=== PATIENT | male | born 1995 | race African-American/Black ===

== ENCOUNTER 2018-03-19 16:40 | Emergency (ER) | payer OTHER ==
--- NOTE | 2018-03-19 17:05 | PDOC ---
Rapid Medical Evaluation Time Seen by Provider: 03/19/18 17:01 Medical Evaluation: 03/19/18 17:01 I have performed a brief in-person evaluation of this patient. The patient presents with a chief complaint of: frontal headache and fever X 1wk , sent by PCP for workup. no neck pain or recent travel, seen at [facility] on Monday, workup included neg CT. Pertinent physical exam findings:non focal neuro exam I have ordered the following: none The patient will proceed to the ED for further evaluation. 03/19/18 17:05 03/19/18 17:06 Discharge Disposition - Diagnosis Headache Qualifiers: Headache type: unspecified Headache chronicity pattern: acute headache Intractability: not intractable Qualified Code(s): R51 - Headache - Referrals - Patient Instructions - Post Discharge Activity
[2018-03-19 17:06] VITALS: BMI 24.3
--- NOTE | 2018-03-19 17:40 | PDOC ---
History of Present Illness - General Chief Complaint: Headache Stated Complaint: PCP SENT/HEADACHE Time Seen by Provider: 03/19/18 17:01 - History of Present Illness Initial Comments: 22-year-old male without comorbidities presents for evaluation of stiff neck and fever 4 days. He was seen in another emergency room diagnosed with sinusitis and put on an antibiotic. Since that time he has not gotten any better. 03/19/18 17:39 Past History - Past Medical History Allergies/Adverse Reactions: Allergies Allergy/AdvReac Type Severity Reaction Status Date / Time No Known Allergies Allergy Verified 03/19/18 17:01 Home Medications: Ambulatory Orders NK [No Known Home Medication] 03/19/18 COPD: No Other medical history: DENIES. - Suicide/Smoking/Psychosocial Hx Smoking History: Never smoked Review of Systems - Review of Systems Constitutional: Yes: Fever Musculoskeletal: Yes: Neck Pain Neurological: Yes: Headache All Other Systems: Reviewed and Negative *Physical Exam - Vital Signs Last Vital Signs Temp Pulse Resp BP Pulse Ox 98.7 F 86 19 137/78 100 03/19/18 17:01 03/19/18 17:01 03/19/18 17:01 03/19/18 17:01 03/19/18 17:01 - Physical Exam Comments: GENERAL: The patient is awake, alert, and fully oriented, in no acute distress. HEAD: Normal with no signs of trauma. EYES: Pupils equal, round and reactive to light, extraocular movements intact, sclera anicteric, conjunctiva clear. ENT: Ears normal, nares patent, oropharynx clear without exudates. Moist mucous membranes. NECK: Normal range of motion, he has meningismus without lymphadenopathy, JVD, or masses. LUNGS: Breath sounds equal, clear to auscultation bilaterally. No wheezes, and no crackles. HEART: Regular rate and rhythm, normal S1 and S2 without murmur, rub or gallop. ABDOMEN: Soft, nontender, normoactive bowel sounds. No guarding, no rebound. No masses. EXTREMITIES: Normal range of motion, no edema. No clubbing or cyanosis. No cords, erythema, or tenderness. NEUROLOGICAL: Cranial nerves II through XII grossly intact. Normal speech, normal gait. PSYCH: Normal mood, normal affect. SKIN: Warm, Dry, normal turgor, no rashes or lesions noted. 03/19/18 17:39 Medical Decision Making - Medical Decision Making I'll transfer this patient to the main emergency room to rule out meningitis 03/19/18 17:40 *DC/Admit/Observation/Transfer Diagnosis at time of Disposition: Headache Qualifiers: Headache type: unspecified Headache chronicity pattern: acute headache Intractability: not intractable Qualified Code(s): R51 - Headache - Referrals - Patient Instructions - Post Discharge Activity
[2018-03-19] MEDS ORDERED: METOCLOPRAMIDE HCL INJECTION 10 MG/2 ML VIAL IVPUSH ONE (18:30)
[2018-03-19] MEDS ORDERED: SODIUM CHLORIDE 1,000 ML IV STA (18:30)
--- NOTE | 2018-03-19 18:50 | PDOC ---
History of Present Illness <Nasra Gentile - Last Filed: 03/19/18 21:36> - General History Source: Patient Exam Limitations: No Limitations - History of Present Illness Initial Comments: 03/19/18 23:17 The patient is a 22-year-old male with no significant past medical history presents to the emergency department with a headache and fever. The patient presents with a progressively worsening headache, localized to the frontal region, accompanied with 4-day hx of fever. The patient reports going to [facility] 3 days prior, was worked up with a negative CT scan and dx with sinusitis, the patient was prescribed Augmentin and motrin. The patient reports taking Augmentin only when a headache is aggravated. The patient reports he was at Dr. Mott's office, where his temperature was 103, no relief with Motrin, and was sent in for evaluation. Denies photophobia. Denies recent travel. Denies nausea or vomiting. Denies sick contact. Denies chills, cough or a headache. Denies chest pain or shortness of breath. Denies abdominal pain. Denies diarrhea or constipation. Denies dysuria, hematuria, frequency or urgency to urinate. Allergies: NKDA Social history: 2 joints daily, no tob, drinks on weekends Surgical history: rotator cuff tear PCP: None reported <Estela Jiang - Last Filed: 03/19/18 23:17> <Kristina Raymundo - Last Filed: 03/19/18 23:46> - General Chief Complaint: Headache Stated Complaint: PCP SENT/HEADACHE Time Seen by Provider: 03/19/18 17:01 Past History <SeferinoNasra - Last Filed: 03/19/18 21:36> <Estela Jiang - Last Filed: 03/19/18 23:17> - Past Medical History COPD: No Other medical history: DENIES. - Suicide/Smoking/Psychosocial Hx Smoking History: Never smoked <Kristina Raymundo - Last Filed: 03/19/18 23:46> - Past Medical History Allergies/Adverse Reactions: Allergies Allergy/AdvReac Type Severity Reaction Status Date / Time No Known Allergies Allergy Verified 03/19/18 17:01 Home Medications: Ambulatory Orders NK [No Known Home Medication] 03/19/18 Review of Systems - Review of Systems Able to Perform ROS?: Yes Comments:: 03/19/18 23:18 CONSTITUTIONAL: (+) Fever Absent: chills, diaphoresis, generalized weakness, malaise, loss of appetite HEENT: Absent: rhinorrhea, nasal congestion, throat pain, throat swelling, difficulty swallowing, mouth swelling, ear pain, eye pain, visual Changes CARDIOVASCULAR: Absent: chest pain, syncope, palpitations, irregular heart rate, lightheadedness , peripheral edema RESPIRATORY: Absent: cough, shortness of breath, dyspnea with exertion, orthopnea, wheezing, stridor, hemoptysis GASTROINTESTINAL: Absent: abdominal pain, abdominal distension, nausea, vomiting, diarrhea, constipation, melena, hematochezia GENITOURINARY: Absent: dysuria, frequency, urgency, hesitancy, hematuria, flank pain, genital pain MUSCULOSKELETAL: Absent: myalgia, arthralgia, joint swelling SKIN: Absent: rash, itching, pallor HEMATOLOGIC/IMMUNOLOGIC: Absent: easy bleeding, easy bruising, lymphadenopathy, frequent infections ENDOCRINE: Absent: unexplained weight gain, unexplained weight loss, heat intolerance, cold intolerance NEUROLOGIC: (+) Headache. Absent: headache, focal weakness or paresthesias, dizziness, unsteady gait, seizure, mental status changes, bladder or bowel incontinence PSYCHIATRIC: Absent: anxiety, depression, suicidal or homicidal ideation, hallucinations. <Estela Jiang - Last Filed: 03/19/18 23:17> *Physical Exam - Vital Signs Last Vital Signs Temp Pulse Resp BP Pulse Ox 98.7 F 86 19 137/78 100 03/19/18 17:01 03/19/18 17:01 03/19/18 17:01 03/19/18 17:01 03/19/18 17:01 <Nasra Gentile - Last Filed: 03/19/18 21:36> - Vital Signs Last Vital Signs Temp Pulse Resp BP Pulse Ox 98.7 F 86 19 137/78 100 03/19/18 17:01 03/19/18 17:01 03/19/18 17:01 03/19/18 17:01 03/19/18 17:01 - Physical Exam Comments: 03/19/18 23:18 GENERAL:Diaphoretic Well developed, well nourished. Awake and alert. No acute distress. HEENT: Normocephalic, atraumatic. PERRLA, EOMI. No conjunctival pallor. Sclera are non- icteric. Moist mucous membranes. Oropharynx is clear. NECK: Supple. Full ROM. No JVD. Carotid pulses 2+ and symmetric, without bruits. No thyromegaly. No lymphadenopathy. CARDIOVASCULAR: Regular rate and rhythm. No murmurs, rubs, or gallops. Distal pulses are 2+ and symmetric. PULMONARY: No evidence of respiratory distress. Lungs clear to auscultation bilaterally. No wheezing, rales or rhonchi. ABDOMINAL: Soft. Non-tender. Non-distended. No rebound or guarding. No organomegaly. Normoactive bowel sounds. MUSCULOSKELETAL Normal range of motion at all joints. No bony deformities or tenderness. No CVA tenderness. EXTREMITIES: No cyanosis. No clubbing. No edema. No calf tenderness. SKIN: No Petechiae Warm and dry. Normal capillary refill. No rashes. No jaundice. NEUROLOGICAL: No gross focal deficit. Alert, awake, appropriate. Cranial nerves 2-12 intact. No deficits to light touch and temperature in face, upper extremities and lower extremities. No motor deficits in the in face, upper extremities and lower extremities. Normoreflexic in the upper and lower extremities. Normal speech. Toes are down- going bilaterally. Gait is normal without ataxia. PSYCHIATRIC: Cooperative. Good eye contact. Appropriate mood and affect. <Estela Jiang - Last Filed: 03/19/18 23:17> - Vital Signs Last Vital Signs Temp Pulse Resp BP Pulse Ox 98.7 F 86 19 137/78 100 03/19/18 17:01 03/19/18 17:01 03/19/18 17:01 03/19/18 17:01 03/19/18 17:01 <Kristina Raymundo - Last Filed: 03/19/18 23:46> Procedures - Lumbar Puncture Indication: Fever, Headache CT Scan: No Betadine Prep: Yes Position: Right lateral decubitus Site: L4-L51 Local Anesthesia: 1% Lidocaine with epi Volume(ml): 3 Lumbar Puncture Kit: Adult Needle Size(gauge): 20 Opening Pressure(mmHg): 15 Traumatic Tap: No Tubes Obtained: 4 Clear Fluid: Yes Complications: No Progress: 03/19/18 21:38 Patient tolerated well <Nasra Gentile - Last Filed: 03/19/18 21:36> ED Treatment Course - LABORATORY CBC & Chemistry Diagram: 03/19/18 18:47 03/19/18 18:47 - ADDITIONAL ORDERS Additional order review: Laboratory Results 03/19/18 03/19/18 03/19/18 18:47 18:47 18:47 PT with INR 14.50 H INR 1.28 H Sodium 138 Potassium 3.9 Chloride 104 Carbon Dioxide 26 Anion Gap 8 BUN 10 Creatinine 1.2 Creat Clearance w eGFR > 60 Random Glucose 83 Calcium 8.4 L Total Bilirubin 0.7 AST 28 ALT 25 Alkaline Phosphatase 47 Total Protein 6.9 Albumin 3.9 Blood Type A POSITIVE Antibody Screen Negative 03/19/18 18:47 RBC 4.56 MCV 88.6 MCHC 33.6 RDW 13.4 MPV 9.5 Neutrophils % No Result Required. Lymphocytes % No Result Required. - Medications Given in the ED: ED Medications Discontinued Medications Generic Name Dose Route Start Last Admin Trade Name Freq PRN Reason Stop Dose Admin Dexamethasone Sodium Phosphate 10 mg 03/19/18 20:13 03/19/18 20:32 Decadron Injection - IVPUSH 03/19/18 20:14 10 mg ONCE ONE Administration Diphenhydramine HCl 25 mg 03/19/18 18:31 03/19/18 19:56 Benadryl Injection - IVPUSH 03/19/18 18:32 25 mg ONCE ONE Administration Sodium Chloride 1,000 mls @ 1,000 mls/hr 03/19/18 18:30 03/19/18 19:13 Normal Saline - IV 03/19/18 19:29 1,000 mls/hr ASDIR STA Administration Ketorolac Tromethamine 30 mg 03/19/18 20:13 03/19/18 20:32 Toradol Injection - IVPUSH 03/19/18 20:14 30 mg ONCE ONE Administration Metoclopramide HCl 10 mg 03/19/18 18:30 03/19/18 19:13 Reglan Injection - IVPUSH 03/19/18 18:31 10 mg ONCE ONE Administration <Nasra Gentile - Last Filed: 03/19/18 21:36> - LABORATORY CBC & Chemistry Diagram: 03/19/18 18:47 03/19/18 18:47 - ADDITIONAL ORDERS Additional order review: Laboratory Results 03/19/18 03/19/18 03/19/18 21:20 21:20 21:20 PT with INR INR Sodium Potassium Chloride Carbon Dioxide Anion Gap BUN Creatinine Creat Clearance w eGFR Random Glucose Calcium Total Bilirubin AST ALT Alkaline Phosphatase Total Protein Albumin CSF Appearance Clear Clear CSF Color Colorless Colorless CSF WBC 0 0 CSF RBC 16 472 CSF Neutrophils No Result Required. No Result Required. CSF Lymphocytes No Result Required. No Result Required. CSF Eosinophils No Result Required. No Result Required. CSF Basophils No Result Required. No Result Required. CSF Macrophages No Result Required. No Result Required. CSF Plasma Cells No Result Required. No Result Required. CSF Diff Comment No Result Required. No Result Required. CSF Comment Tube # 4 Tube # 1 CSF Glucose No Result Required. 52 52 CSF Total Protein No Result Required. 31 31 Blood Type Antibody Screen 03/19/18 03/19/18 03/19/18 18:47 18:47 18:47 PT with INR 14.50 H INR 1.28 H Sodium 138 Potassium 3.9 Chloride 104 Carbon Dioxide 26 Anion Gap 8 BUN 10 Creatinine 1.2 Creat Clearance w eGFR > 60 Random Glucose 83 Calcium 8.4 L Total Bilirubin 0.7 AST 28 ALT 25 Alkaline Phosphatase 47 Total Protein 6.9 Albumin 3.9 CSF Appearance CSF Color CSF WBC CSF RBC CSF Neutrophils CSF Lymphocytes CSF Eosinophils CSF Basophils CSF Macrophages CSF Plasma Cells CSF Diff Comment CSF Comment CSF Glucose CSF Total Protein Blood Type A POSITIVE Antibody Screen Negative 03/19/18 18:47 RBC 4.56 MCV 88.6 MCHC 33.6 RDW 13.4 MPV 9.5 Neutrophils % No Result Required. Lymphocytes % No Result Required. - Medications Given in the ED: ED Medications Discontinued Medications Generic Name Dose Route Start Last Admin Trade Name Freq PRN Reason Stop Dose Admin Dexamethasone Sodium Phosphate 10 mg 03/19/18 20:13 03/19/18 20:32 Decadron Injection - IVPUSH 03/19/18 20:14 10 mg ONCE ONE Administration Diphenhydramine HCl 25 mg 03/19/18 18:31 03/19/18 19:56 Benadryl Injection - IVPUSH 03/19/18 18:32 25 mg ONCE ONE Administration Sodium Chloride 1,000 mls @ 1,000 mls/hr 03/19/18 18:30 03/19/18 19:13 Normal Saline - IV 03/19/18 19:29 1,000 mls/hr ASDIR STA Administration Ketorolac Tromethamine 30 mg 03/19/18 20:13 03/19/18 20:32 Toradol Injection - IVPUSH 03/19/18 20:14 30 mg ONCE ONE Administration Metoclopramide HCl 10 mg 03/19/18 18:30 03/19/18 19:13 Reglan Injection - IVPUSH 03/19/18 18:31 10 mg ONCE ONE Administration <Estela Jiang - Last Filed: 03/19/18 23:17> - LABORATORY CBC & Chemistry Diagram: 03/19/18 18:47 03/19/18 18:47 <Kristina Raymundo - Last Filed: 03/19/18 23:46> Medical Decision Making - Medical Decision Making 03/19/18 18:49 22 YO CAME FROM pcp -65 DAYS OF HEADACHE ANBD 4 DAYS OF FEVER -103 fever today and he took motrin -HAW[place]OR[place] 04/20 and 06/20 when he leans forwawrd and motrin elimates it - went to [facility] on Monday and on Augmentin but he is not complaint,he only takes it when he gets a headache -he had a ct scan and daignosed w sinusitis -no visual changes,recent travel,vomiting,no sick contacts -currently hungry and asking for food -lives w family 03/19/18 18:52 03/19/18 18:[address] Mott ENT and was sent over because he had rt sided neck pain PMH denies PSH rotator cuff tear meds augmentin,motroin social hisotry 2 joints daily, no tob, drinks on weekends 03/19/18 18:56 ororpharynx no exudates eyes serafin eomi,tears has some photophobia neck cervical lymph node lungs cta b/l cvs [id number] abd nontender skin no petechia neuro axox3,no ataxia,motor strength 5/5 03/19/18 18:59 03/19/18 23:45 Lumbar puncture done by Dr. Gentile, resident CSF fluid had 0 WBCs, glucose 53 Impression no evidence of bacterial meningitis. We'll discharge home <Kristina Raymundo - Last Filed: 03/19/18 23:46> *DC/Admit/Observation/Transfer <Nasra Gentile - Last Filed: 03/19/18 21:36> <ApolinarEstela - Last Filed: 03/19/18 23:17> <Kristina Raymundo - Last Filed: 03/19/18 23:46> Diagnosis at time of Disposition: Fever Headache Qualifiers: Headache type: unspecified Headache chronicity pattern: acute headache Intractability: not intractable Qualified Code(s): R51 - Headache - Discharge Dispostion Disposition: HOME Condition at time of disposition: Stable - Patient Instructions Printed Discharge Instructions: DI for Lumbar Puncture Additional Instructions: You were seen in the ER for fever and headache. We did an exam, laboratory work , and a lumbar puncture with laboratory work on this fluid as well, and we did not find any concerning emergency findings. After our assessment, we do not believe there is a medical emergency at this time, and we believe it is safe to go home. Please take your antibiotics as instructed on the medication label and take the whole course, whether or not the symptoms resolve. The antibiotic medication is not meant to be taken only if you have pain - if you are taking a course of antibiotics, you really need to take it as a scheduled, regular medication as prescribed on the label. Take Motrin and Tylenol as you need them for pain. Please follow up with your regular PCP doctor in 1-3 days, and your ENT doctor as well. Call their clinic as soon as possible, tell them you were seen in the ER, and tell them you need an appointment. If there are any new or worsening symptoms, please come back to the ER at any time (24 hours a day). If the symptoms appear severe or life-threatening, please call 911 to have an ambulance take you to the ER.
[2018-03-19 18:58] LABS: HEMATOCRIT 40.4 % (35.4-49); HEMOGLOBIN 13.6 GM/dL (11.7-16.9); MCH 29.8 pg (25.7-33.7); MCHC 33.6 g/dl (32.0-35.9); MEAN CELL VOLUME 88.6 fl (80-96); MEAN PLT VOLUME 9.5 fl (7.5-11.1); PLATELET COUNT 124 K/MM3 (134-434); RBC 4.56 M/mm3 (4.00-5.60); RDW 13.4 % (11.9-15.9); WHITE BLOOD COUNT 5.5 K/mm3 (4.0-10.0)
[2018-03-19] MEDS ORDERED: METOCLOPRAMIDE HCL INJECTION 10 MG/2 ML VIAL ONE (19:03)
[2018-03-19 19:11] LABS: INR 1.28 (0.82-1.09); PROTHROMBIN TIME (PATIENT) 14.5 SEC (9.7-13.0)
[2018-03-19 19:25] LABS: ALBUMIN 3.9 g/dl (3.4-5.0); ALK PHOS 47 U/L (45-117); ANION GAP 8 (8-16); BILIRUBIN,TOTAL 0.7 mg/dL (0.2-1.0); BLOOD UREA NITROGEN 10 mg/dL (7-18); CALCIUM 8.4 mg/dL (8.5-10.1); CHLORIDE 104 mmol/L (98-107); CO2 26 mmol/L (21-32); CREATININE 1.2 mg/dL (0.7-1.3); GLUCOSE,RANDOM 83 mg/dL (74-106); POTASSIUM 3.9 mmol/L (3.5-5.1); SGOT/AST 28 U/L (15-37); SGPT/ALT 25 U/L (12-78); SODIUM 138 mmol/L (136-145); TOT PROT 6.9 g/dl (6.4-8.2)
[2018-03-19] MEDS ORDERED: KETOROLAC TROMETHAMINE 30 MG/1 ML VIAL IVPUSH ONE (20:13)
[2018-03-19] MEDS ORDERED: DEXAMETHASONE SOD PHOSPHATE 10 MG/1 ML VIAL IVPUSH ONE (20:13)
[2018-03-19] MEDS ORDERED: KETOROLAC TROMETHAMINE 30 MG/1 ML VIAL ONE (20:27)
[2018-03-19] MEDS ORDERED: DEXAMETHASONE SOD PHOSPHATE 10 MG/1 ML VIAL ONE (20:27)
[2018-03-19 20:57] LABS: PLATELET ESTIMATE SLT DECREASE
[2018-03-19 22:58] LABS: GLUCOSE,CSF 52 mg/dL (50-80)
[2018-03-19 23:01] LABS: GLUCOSE,CSF 52 mg/dL (50-80)
[2018-03-19 23:10] LABS: CSF APPEARANCE CLEAR; CSF COLOR COLORLESS; CSF WBC 0
[2018-03-19 23:11] LABS: CSF APPEARANCE CLEAR; CSF COLOR COLORLESS; CSF WBC 0
--- NOTE | 2018-03-19 23:28 | PDOC ---
*Physical Exam - Vital Signs Last Vital Signs Temp Pulse Resp BP Pulse Ox 98.7 F 86 19 137/78 100 03/19/18 17:01 03/19/18 17:01 03/19/18 17:01 03/19/18 17:01 03/19/18 17:01 03/19/18 23:23 Continued care along with Dr. Raymundo. LP performed without issue. ED Treatment Course - LABORATORY CBC & Chemistry Diagram: 03/19/18 18:47 03/19/18 18:47 - ADDITIONAL ORDERS Additional order review: Laboratory Results 03/19/18 03/19/18 03/19/18 21:20 21:20 21:20 PT with INR INR Sodium Potassium Chloride Carbon Dioxide Anion Gap BUN Creatinine Creat Clearance w eGFR Random Glucose Calcium Total Bilirubin AST ALT Alkaline Phosphatase Total Protein Albumin CSF Appearance Clear Clear CSF Color Colorless Colorless CSF WBC 0 0 CSF RBC 16 472 CSF Neutrophils No Result Required. No Result Required. CSF Lymphocytes No Result Required. No Result Required. CSF Eosinophils No Result Required. No Result Required. CSF Basophils No Result Required. No Result Required. CSF Macrophages No Result Required. No Result Required. CSF Plasma Cells No Result Required. No Result Required. CSF Diff Comment No Result Required. No Result Required. CSF Comment Tube # 4 Tube # 1 CSF Glucose No Result Required. 52 52 CSF Total Protein No Result Required. 31 31 Blood Type Antibody Screen 03/19/18 03/19/18 03/19/18 18:47 18:47 18:47 PT with INR 14.50 H INR 1.28 H Sodium 138 Potassium 3.9 Chloride 104 Carbon Dioxide 26 Anion Gap 8 BUN 10 Creatinine 1.2 Creat Clearance w eGFR > 60 Random Glucose 83 Calcium 8.4 L Total Bilirubin 0.7 AST 28 ALT 25 Alkaline Phosphatase 47 Total Protein 6.9 Albumin 3.9 CSF Appearance CSF Color CSF WBC CSF RBC CSF Neutrophils CSF Lymphocytes CSF Eosinophils CSF Basophils CSF Macrophages CSF Plasma Cells CSF Diff Comment CSF Comment CSF Glucose CSF Total Protein Blood Type A POSITIVE Antibody Screen Negative 03/19/18 18:47 RBC 4.56 MCV 88.6 MCHC 33.6 RDW 13.4 MPV 9.5 Neutrophils % No Result Required. Lymphocytes % No Result Required. - Medications Given in the ED: ED Medications Discontinued Medications Generic Name Dose Route Start Last Admin Trade Name Freq PRN Reason Stop Dose Admin Dexamethasone Sodium Phosphate 10 mg 03/19/18 20:13 03/19/18 20:32 Decadron Injection - IVPUSH 03/19/18 20:14 10 mg ONCE ONE Administration Diphenhydramine HCl 25 mg 03/19/18 18:31 03/19/18 19:56 Benadryl Injection - IVPUSH 03/19/18 18:32 25 mg ONCE ONE Administration Sodium Chloride 1,000 mls @ 1,000 mls/hr 03/19/18 18:30 03/19/18 19:13 Normal Saline - IV 03/19/18 19:29 1,000 mls/hr ASDIR STA Administration Ketorolac Tromethamine 30 mg 03/19/18 20:13 03/19/18 20:32 Toradol Injection - IVPUSH 03/19/18 20:14 30 mg ONCE ONE Administration Metoclopramide HCl 10 mg 03/19/18 18:30 03/19/18 19:13 Reglan Injection - IVPUSH 03/19/18 18:31 10 mg ONCE ONE Administration Medical Decision Making - Medical Decision Making 03/19/18 23:24 Patient states feeling much better. He is able to walk and tolerate PO fluids. States he has enough medication at home for his previously prescribed abx course and also pain control. He feels comfortable going home with family. He and his significant other are counseled that the patient should take the Augmentin as Rx. They are counseled that this medication is not a prn for pain and should be taken scheduled. They are counseled that he should take the entire course as prescribed whether or not he feels better. He is given post-LP information. He will f/u with his PCP as soon as possible. Specific return precautions are discussed and he will return to ED if needed. *DC/Admit/Observation/Transfer Diagnosis at time of Disposition: Headache Qualifiers: Headache type: unspecified Headache chronicity pattern: acute headache Intractability: not intractable Qualified Code(s): R51 - Headache Fever Qualifiers: Fever type: unspecified Qualified Code(s): R50.9 - Fever, unspecified - Discharge Dispostion Disposition: HOME Condition at time of disposition: Stable Decision to Admit order: No - Referrals - Patient Instructions Printed Discharge Instructions: DI for Lumbar Puncture Additional Instructions: You were seen in the ER for fever and headache. We did an exam, laboratory work , and a lumbar puncture with laboratory work on this fluid as well, and we did not find any concerning emergency findings. After our assessment, we do not believe there is a medical emergency at this time, and we believe it is safe to go home. Please take your antibiotics as instructed on the medication label and take the whole course, whether or not the symptoms resolve. The antibiotic medication is not meant to be taken only if you have pain - if you are taking a course of antibiotics, you really need to take it as a scheduled, regular medication as prescribed on the label. Take Motrin and Tylenol as you need them for pain. Please follow up with your regular PCP doctor in 1-3 days, and your ENT doctor as well. Call their clinic as soon as possible, tell them you were seen in the ER, and tell them you need an appointment. If there are any new or worsening symptoms, please come back to the ER at any time (24 hours a day). If the symptoms appear severe or life-threatening, please call 911 to have an ambulance take you to the ER. - Post Discharge Activity
[2018-03-19 23:51] VITALS: BP 110/60; PULSE 89; TEMP 98.2
== END 2018-03-20 00:19 | disposition home or self-care (01) ==
LOC: JER 16:40 → JERFT 16:40 → JER 03-20 00:19
PROC: 3E033GC Introduction of Other Therapeutic Substance into Peripheral Vein, Percutaneous Approach (ICD-10-PCS; principal; 2018-03-19)
PROC: 3E033GC Introduction of Other Therapeutic Substance into Peripheral Vein, Percutaneous Approach (ICD-10-PCS; 2018-03-19)
PROC: 3E0333Z Introduction of Anti-inflammatory into Peripheral Vein, Percutaneous Approach (ICD-10-PCS; 2018-03-19)
PROC: 3E0333Z Introduction of Anti-inflammatory into Peripheral Vein, Percutaneous Approach (ICD-10-PCS; 2018-03-19)
DX: R50.9 Fever, unspecified (principal); M54.2 Cervicalgia
CPT/HCPCS: 36415; 80053; 82945; 83605; 84157; 84166; 85025; 85610; 86592; 86617; 86644; 86663; 86664; 86665; 86694; 86735; 86765; 86777; 86787; 86788; 86789; 86850; 86900; 86901; 87040; 87070; 87205; 87430; 87476; 87529; 87802; 87899; 96374; 96375; 99283-25; J1100; J7030